=== PATIENT | female | born 1950 | race Two or more races ===

== ENCOUNTER → 2017-02-20 | Outpatient (CLI) | payer BC, OTHER ==
--- NOTE | 2017-02-20 14:40 | RADRPT ---
PROCEDURE: Left knee x-ray CLINICAL INDICATION: Pain TECHNIQUE: AP, lateral and sunrise views of the left knee were obtained. COMPARISON: None FINDINGS: There is no evidence of acute fractures or dislocations. The bony mineralization is normal. There are no focal bony blastic or lytic lesions. There is mild degenerate joint disease of the left knee demonstrated along the medial compartment. There is no evidence of patellar subluxation. No evide nce of a left knee joint effusion. The soft tissues are unremarkable. IMPRESSION: 1. Mild degenerate joint disease left knee without evidence of acute fracture dislocation or joint effusion. RPTAT:AAJJ Physician Mirian Date Time Electronically viewed and signed by Physician Mirian on 02/20/2017 14:39 /
--- NOTE | 2017-02-21 15:03 | HKNOTE ---
DATE OF SERVICE: 02/20/2017 REFERRING PHYSICIAN: Dr. Ben Cao, [address] [id number] MAIN COMPLAINT: Pain in the left knee. HISTORY OF MAIN COMPLAINT: The patient is a 66-year-old female who saw me in 2012 for her right kne e. I gave her a cortisone injection into the knee and she has never had any pain in the knee ever s yao that time! She now complains of pain in her left knee without any history of recent injury. The pain started a bout a month ago. The pain is described as being moderate. The knee swells, feels unstable, and occ asionally locks. She does get rest pain and night pain. She takes Advil, which does not seem to he lp. She is not able to walk more than 1 or 2 blocks at a time without stopping. She does not use a walking aid. She limps some of the time. PAST ORTHOPEDIC HISTORY: PREVIOUS ORTHOPEDIC OPERATIONS: None. PRIOR CORTISONE INTAKE: Right knee and left thumb. ALCOHOL INTAKE: "Occasional". OTHER JOINT PROBLEMS: None. BLOOD TESTS FOR ARTHRITIS: Yes ("positive"). WORK STATUS: Patient is a homemaker. PAST MEDICAL HISTORY: 1. Hypothyroid. 2. 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 3. Hypertension. PAST SURGICAL HISTORY: Negative. DRUG ALLERGIES: Negative. MEDICATIONS: 1. Alprazolam for anxiety. 2. Thyroxine. 3. Protonix 40 mg a day. 4. Triamterene 37.5 mg daily. 5. Fluoxetine 20 mg daily. 6. Aspirin 81 mg daily. FAMILY HISTORY: Noncontributory. SYSTEMS REVIEW: Prone to heartburn, varicose veins, otherwise entirely negative. HABITS: No history of smoking or alcohol intake. PHYSICAL EXAMINATION: GENERAL: The patient is a fit-looking, overweight, 66-year-old female. VITAL SIGNS: Height 5 foot 2, weight 180 pounds. Blood pressure 130/70, temperature 98.2. GAIT: The patient's gait is slightly antalgic. She walks without a walking aid. DIRECTED PHYSICAL EXAMINATION: Both hips have full range of motion without pain. LEFT KNEE: The left knee shows normal alignment. Active and passive extension is 0 degrees. Active and passive flexion is 135 degrees. The medial and lateral collateral ligaments and cruciate ligamen ts are intact. Sherri test is negative. There is no scarring, crepitus, or cysts. The patella track s normally. There is no tenderness on the articular surface of the patella or in the patellar groove . The Q angle is normal. 1+ effusion, tender over the medial joint line. 2+ crepitus in the knee an d on the patella. IMAGING: Plain x-rays of the left knee obtained today show minimal narrowing of the medial compartm ent of the knee and patellofemoral joint. No secondary arthritic changes such as osteophytes, subch ondral sclerosis, or intraosseous cyst formation. DIAGNOSES: 1. Mild degenerative osteoarthritis of the left knee. 2. Probable internal derangement of the left knee. 3. Anxiety. 4. Hypothyroid. 5. Esophageal reflux. 6. Hypertension. 7. Tendency to depression. MANAGEMENT: Under sterile conditions, the patient was given an injection of 2 mL of Kenalog and 6 m L of 2% lidocaine into the knee. She will wait approximately 1 week. If her symptoms have not yadi edly improved, she will call my custody assistant, Debora, who will order a MRI scan of the knee. Dictated By: ISABELL BRANHAM/JAE Conf#: [id number] DID#: [id number]
== END | disposition home or self-care (01) ==
LOC: HKI 14:19
DX: M17.12 Unilateral primary osteoarthritis, left knee (principal); F41.9 Anxiety disorder, unspecified; E03.9 Hypothyroidism, unspecified; K21.9 Gastro-esophageal reflux disease without esophagitis; I10 Essential (primary) hypertension; F32.9 Major depressive disorder, single episode, unspecified; Z79.82 Long term (current) use of aspirin

== ENCOUNTER → 2017-03-26 | Outpatient (CLI) | payer BC ==
--- NOTE | 2017-03-31 12:10 | HKNOTE ---
DATE OF SERVICE: 03/26/2017 HISTORY OF PRESENT ILLNESS: The patient had an MRI scan of her left knee on 03/12/2017. The MRI reports full-thickness radial tear of the posterior meniscotibial root ligament to the medial meniscus with mild medial compartment arthrosis, mild chondromalacia of the patella, a moderate-sized effusion. The cortisone injection helped her a great deal, but only for a brief period. She complains that her pain is now mainly over the pes tendon bursa area. She continues to work. She can walk about 2 blocks. She does not need support. PHYSICAL EXAMINATION: On physical examination of the left knee, full range of motion, no effusion. Marked tenderness over the pes bursa. DIAGNOSIS: 1. Pes bursitis of the left knee. 2. Torn medial meniscus by MRI. 3. Mild degenerative changes of the left knee. MANAGEMENT: The patient is advised since she no longer has the classic symptoms of a torn meniscus, and in addition to that, she now has quite severe tenderness at the pes bursa, we should continue to treat her conservatively. Certainly the pain from the pes bursa needs to be eliminated before we can get a clear distinct picture of her knee problem. Management under sterile conditions, given an injection of 2 cc of Kenalog and 6 cc of 2 percent lidocaine into the pes bursa. She will be seen again as necessary. She was advised that the MRI scan has a 5 percent chance of a false diagnosis on the meniscus. If her symptoms do not subside sufficiently, we will have no choice but to perform an arthroscopic operation for further evaluation. Dictated By: Brendon Chung MD /lala/sonia /Document#: [id number]
== END | disposition home or self-care (01) ==
LOC: HKI 13:35
DX: M17.11 Unilateral primary osteoarthritis, right knee (principal); S83.242D Other tear of medial meniscus, current injury, left knee, subsequent encounter; X58.XXXD Exposure to other specified factors, subsequent encounter; M70.52 Other bursitis of knee, left knee
CPT/HCPCS: 20610